=== PATIENT | female | born 1955 | race Two or more races ===

== ENCOUNTER 2019-01-03 14:35 | Inpatient (IN) | payer MEDICAID ==
[~2019-01-03] VITALS: Ht 157.5 cm; Wt 65.5 kg
[2019-01-03 16:09] LABS: Basophils # (auto) 0.1 uL; Basophils % (auto) 1.4 % (0.0-2.0); Eosinophils # (auto) 0.1 uL; Eosinophils % (auto) 2.6 % (0.0-7.0); Hematocrit 44.4 % (36.0-46.0); Hemoglobin 14.9 g/dL (12.2-16.2); Lymphocytes # (auto) 1.4 uL; Lymphocytes % (auto) 32.6 % (10.0-50.0); Mean Corpuscular Hgb Conc. 33.5 g/dL (32.0-36.0); Mean Corpuscular Volume 92.6 fL (80.0-100.0); Monocytes # (auto) 0.5 uL; Monocytes % (auto) 10.5 % (0.0-12.0); Neutrophils # (auto) 2.3 uL; Neutrophils % (auto) 52.9 % (37.0-80.0); Nucleated Red Blood Cells % 0.2 %; Platelet Count (auto) 247 10^3/uL (140-450); Red Blood Cells 4.79 10^6/uL (4.0-5.20); White Blood Cell 4.4 10^3/uL (4.4-10.8)
[2019-01-03 16:24] LABS: Albumin 3.7 g/dL (3.4-5.0); Anion Gap 5 (5-15); Blood Urea Nitrogen 15 mg/dL (7-18); Calcium 8.6 mg/dL (8.5-10.1); Carbon Dioxide 29 mmol/L (21-32); Chloride 112 mmol/L (98-107); Glucose 119 mg/dL (74-106); Magnesium 2.3 mg/dL (1.6-2.6); Potassium 3.5 mmol/L (3.5-5.1); Sodium 146 mmol/L (136-145)
[2019-01-03 16:29] LABS: Alanine Aminotransferase 18 U/L (13-56); Alkaline Phosphatase 89 U/L (45-117); Aspartate Aminotransferase 12 U/L (15-37); BUN/Creatinine Ratio 17.2; Bilirubin, Total 0.7 mg/dL (0.2-1.0); GFR African American 84 mL/min; GFR Non-African American 70 mL/min
[2019-01-03] MEDS ORDERED: ACETAMINOPHEN 500 MG TAB PO PRN (18:15)
[2019-01-03] MEDS ORDERED: MORPHINE SULF INJ 2 MG/ML SYRINGE 1ML IV PRN (18:15)
[2019-01-03] MEDS ORDERED: traMADol HCL 50 MG TAB PO PRN (18:15)
[2019-01-03] MEDS ORDERED: LACTULOSE 20Gm/30ML SOLN PO PRN (18:15)
[2019-01-03] MEDS ORDERED: NITROGLYCERIN 0.4 MG SL TAB SL PRN (18:15)
[2019-01-03] MEDS ORDERED: TEMAZEPAM 15 MG CAP PO PRN (18:15)
[2019-01-03] MEDS ORDERED: ASPirin 81 mg TAB PO ONE (18:15)
[2019-01-03] MEDS ORDERED: PROMETHAZINE HCL 25 MG/ML 1ML IV PRN (18:15)
[2019-01-03] MEDS ORDERED: LABETALOL HCL 5 MG/ML ML 20ML VIAL IV PRN (18:15)
[2019-01-03] MEDS: SODIUM CHLORIDE 0.9% 1,000 ML IV SCH (18:46)
[2019-01-03 18:54] LABS: CRP High Sensitivity 0.2 mg/dL (< 0.3)
[2019-01-03 19:27] LABS: Urine Amorphous Crystal FEW /hpf (None Seen); Urine Bacteria NONE SEEN /hpf (None Seen); Urine Blood Negative /uL (Negative); Urine Specific Gravity 1.019 (1.001-1.035); Urine WBC 5 /hpf (0 - 5)
[2019-01-03] MEDS ORDERED: LORazepam 2MG/ML-1ML VIAL IV PRN (19:30)
--- NOTE | 2019-01-03 19:47 | NUR ---
Telemetry admit from ER MAGNUS MASTERSON admitted to Telemetry unit after hand off tool received. Patient oriented to primary RN, unit, room, bed, and unit policies regarding patient care and visiting hours. Patient now on continuous telemetry monitoring, tele box # 2 and telemetry reading on arrival to unit is Sinus Rhythm 62. Patient weighed by bedscale and encouraged to call if they need something. Patient Romanian speaking only. Family at bedside for interpretation. All questions and concerns addressed, patient verbalized understanding.
[2019-01-03] MEDS ORDERED: SIMV-13 PO (21:29)
[2019-01-03] MEDS ORDERED: ATEN-60 PO (21:29)
[2019-01-03 22:00] VITALS: BP 151/86
[2019-01-03] MEDS: ATORVASTATIN 20 MG TAB PO SCH (22:10)
[2019-01-03 22:33] VITALS: BP 151/86
--- NOTE | 2019-01-03 22:58 | NUR ---
Respiratory note: PT REFUSE CPAP AT THIS TIME, PT STATES SHE DOES NOT HAVE CPAP, PT STATES THE DR ORDERED IT BECAUSE SHE SNORES. SAYS SHE HAS NEVER HAD A SLEEP STUDY AND WILL NOT WEAR THE CPAP.
[2019-01-04 05:00] VITALS: BP 155/93
[2019-01-04 06:26] LABS: Cholesterol 265 mg/dL (< 200); HDL Cholesterol 61 mg/dL (40-59); LDL Cholesterol 187 mg/dL (< 100); Triglycerides 85 mg/dL (< 150)
[2019-01-04] MEDS: SODIUM CHLORIDE 0.9% 1,000 ML IV SCH (06:45)
[2019-01-04 08:00] VITALS: BP 139/85
--- NOTE | 2019-01-04 08:10 | NUR ---
PT RESTING IN BED, NO DISTRESS NOTED. ACUTE DIALYSIS REGISTERED NURSE AT BEDSIDE FOR CAROTID DOPPLER US. PT REPORTS NO PAIN AT THIS TIME, WILL CONTINUE TO MONITOR.
[2019-01-04] MEDS ORDERED: ASPirin 81 mg TAB PO SCH (10:00)
[2019-01-04] MEDS: PANTOPRAZOLE 40 MG TAB PO SCH (10:25)
[2019-01-04] MEDS: ASPirin 81 mg TAB PO SCH (10:25)
[2019-01-04] MEDS: ENOXAPARIN SOD 40 MG/0.4 ML SYRINGE SC SCH (10:26)
[2019-01-04 12:00] VITALS: BP 143/89
--- NOTE | 2019-01-04 12:28 | NUR ---
ECHO DONE, RESULTS PENDING. CARDIO CONSULT CALLED IN AT [address] JEAN.
--- NOTE | 2019-01-04 12:42 | NUR ---
DR JEAN SAW PATIENT, NEW ORDERS FOR STRESS TEST. PATIENT AND FAMILY UPDATED ON POC.
--- NOTE | 2019-01-04 13:04 | NUR ---
Called stress lab to see when they could take patient, no answer. Unable to leave message. Will call back. Patient notified not to eat lunch, pt aware, lunch untouched at bedside.
--- NOTE | 2019-01-04 14:10 | NUR ---
CALLED STRESS LAB AGAIN, UNABLE TO REACH ANYONE OR LEAVE MESSAGE, PHONE JUST KEEPS RINGING.
--- NOTE | 2019-01-04 14:31 | NUR ---
PT WENT DOWN FOR MRI AND HAD FIRST PART OF STRESS TEST, REPORTED BY CRISTOPHER RESEARCH PROGRAM ASSISTANT.
[2019-01-04] MEDS ORDERED: ADENOSINE 51 MG in GIVE UN-DILUTED 0 ML IV STA (14:35)
[2019-01-04] MEDS ORDERED: GADOPENTETATE DIMEGLUMINE (10MMOL/20 ML) VIAL IV ONE (14:50)
[2019-01-04 15:10] VITALS: BP 173/98
--- NOTE | 2019-01-04 15:27 | NUR ---
Discharge planning per SS consult indicating that patient was requesting information about home health. On encounter, patient was lying in bed with her daughter at bedside. I asked of the inquiry and the daughter advised that they were told she (mom/pt.) may benefit from home health. I provided a list of the local home health agencies to the patient. They had no additional questions. I advised if I seen an order, I would reencounter to discuss any preference; they verbalized understanding.
--- NOTE | 2019-01-04 15:52 | NUR ---
Tech reports pt back from stress test.
[2019-01-04] MEDS ORDERED: MIDODRINE HCL 10 MG TAB PO ONE (16:00)
[2019-01-04] MEDS ORDERED: ALBUMIN 25% 100 ML IV ONE ×2 (16:00)
--- NOTE | 2019-01-04 16:00 | NUR ---
CALLED AND PAGED DR KRAMER. PT HAS 4 PLUS LEUKOCYTES IN URINE AND NO ABX.
--- NOTE | 2019-01-04 16:53 | NUR ---
DR KRAMER CALLED BACK, REPORTED 4 PLUS LEUKOCYTES IN URINE. MD AWARE, NO NEW ORDERS AT THIS TIME.
[2019-01-04 17:00] VITALS: BP 175/106
--- NOTE | 2019-01-04 20:00 | NUR ---
Dr. Newby at bedside, educated on the use of CPAP as ordered. Pt and daughter verbalized understanding. No new orders received. Will continue to monitor.
[2019-01-04] MEDS: ATORVASTATIN 20 MG TAB PO SCH (21:17)
[2019-01-04 22:00] VITALS: BP 148/87
--- NOTE | 2019-01-04 22:29 | NUR ---
RT NOTE WENT TO DO THE ROUTINE 2200 CPAP CHECK AND THE PT REQUESTED TO HAVE THE CPAP REMOVED DUE TO BEING UNCOMFORTABLE.
[2019-01-05 05:07] VITALS: BP 141/85
--- NOTE | 2019-01-05 05:50 | NUR ---
Respiratory note: Received pt from steward/stewardess night, RT at bedside for CPAP check. Pt already off CPAP, sleeping comfortably in bed, no s/s of respiratory distress noted at this time.
[2019-01-05 09:00] VITALS: BP 150/89
[2019-01-05] MEDS: ENOXAPARIN SOD 40 MG/0.4 ML SYRINGE SC SCH (09:57)
[2019-01-05] MEDS: PANTOPRAZOLE 40 MG TAB PO SCH (09:57)
[2019-01-05] MEDS: ASPirin 81 mg TAB PO SCH (09:57)
[2019-01-05 13:00] VITALS: BP 149/90
--- NOTE | 2019-01-05 13:15 | NUR ---
Hospitalist at bedside MD Joy at bedside, aware of patient's status. Spoke to patient and pt's daughter at bedside regarding POC. New orders for P.T received. Patient requesting cough medicine at this time. Awaiting echo results and Cardiolite results at this time. Will cont care
[2019-01-05] MEDS ORDERED: PROMETHAZINE HCL 6.25 MG/5 ML ORAL SYRUP PO ONE (14:45)
[2019-01-05 17:00] VITALS: BP 144/94
--- NOTE | 2019-01-05 19:30 | NUR ---
Opening shift note Patient in bed alert and oriented x 4, verbally coherent able to make needs known. Patient's respiration even and unlabored, denies pain and discomfort at this time. Encouraged patient the use of CPAP as ordered. Interpretation from Botswanan to Danish provided by family. Plan of care discussed. Pt and family verbalized understanding. Will continue to monitor.
--- NOTE | 2019-01-05 19:55 | NUR ---
NOTIFIED BY RN ABOUT FAMILY COMPLAINT REGARDING CPAP. SPOKE WITH FAMILY ABOUT SITUATION AND DUE TO LANGUAGE BARRIER, THERAPIST REMOVED PT AND KEPT OFF BUT PT WANTED TO KEEP ON AFTER USING BATHROOM. RT REGINALD ABLE TO TRANSLATE AND WILL BE ON STAND BY TO COMMUNICATE WITH PT WHEN READY TO GO ON CPAP.
[2019-01-05 22:00] VITALS: BP 150/89
[2019-01-05] MEDS: ATORVASTATIN 20 MG TAB PO SCH (22:25)
--- NOTE | 2019-01-05 22:27 | NUR ---
Respiratory note: Olvin BARROSO ASSISTED WITH TRANSLATION AND HELPED PLACE PT ON CPAP FOR NOC USE. PT TOLERATING CPAP WELL WITH FULL FACE MASK MEDIUM SIZE. NO SKIN BREAKDOWN NOTED. PT ALERT AND ORIENTED. PLACED PT ON BEDSIDE PULSE OX. SPO2 ON CPAP 96%, HR 71, RR 16. BS CLR/DIM T/O. WILL CONTINUE TO MONITOR PT T/O SHIFT MADE PT AWARE TO CALL FOR ANY ASSISTANCE IN DEVICE OR NEEDING TO USE RESTROOM.
--- NOTE | 2019-01-05 22:35 | NUR ---
RT at bedside CPAP initiated. Patient compliant. Will continue to monitor.
--- NOTE | 2019-01-06 00:40 | NUR ---
received report from cristal Rivers, to continue pt. care.
[2019-01-06 05:00] VITALS: BP 145/99
--- NOTE | 2019-01-06 05:57 | NUR ---
Respiratory note: TOOK PT OFF CPAP, PT AWAKE AND ALERT AND READY TO COME OFF CPAP. HR 67, SPO2 98% RA BSC, RR 16. NO RESP DISTRESS NOTED.
[2019-01-06 09:00] VITALS: BP 139/86
[2019-01-06] MEDS: ASPirin 81 mg TAB PO SCH (09:42)
[2019-01-06] MEDS: PANTOPRAZOLE 40 MG TAB PO SCH (09:42)
[2019-01-06] MEDS: ENOXAPARIN SOD 40 MG/0.4 ML SYRINGE SC SCH (09:43)
[2019-01-06] MEDS ORDERED: ATOR20TA50 PO (11:26)
[2019-01-06] MEDS ORDERED: AML5T PO (11:26)
[2019-01-06] MEDS ORDERED: ASPI81CH43 PO (11:26)
--- NOTE | 2019-01-06 11:30 | NUR ---
Regarding echo results Per MD Melgoza "EF is 60% Trace MR, TR LAE" MD Joy aware and states patient can be discharged. Will dc as ordered
[2019-01-06 11:37] VITALS: BP 157/92
[2019-01-06 13:00] VITALS: BP 157/82
[2019-01-06 14:45] VITALS: BP 146/84
--- NOTE | 2019-01-06 15:25 | NUR ---
Discharge instructions given as ordered to patient and after patient's consent, daughter at bedside. Encourage to follow up with PMD as instructed. All questions and concerns addressed. Patient verbalized understanding. Medication reconciliation form completed and copy given to patient. IV removed with catheter intact, pressure dressing applied. Telemetry unit returned to ICU. Patient refused wheelchair and ambulated in no acute distress with all personal belongings, accompanied by family member. No distress noted at time of departure.
== END 2019-01-06 15:25 | disposition home or self-care (01) | DRG 45 ==
LOC: ER 14:39 → TELE 14:40 → TELE-EAST 19:47
PROVIDERS: ADMIT Internal Medicine; ATTEND Internal Medicine Nephrology
DX: I63.81 Other cerebral infarction due to occlusion or stenosis of small artery (principal); G81.91 Hemiplegia, unspecified affecting right dominant side; G47.10 Hypersomnia, unspecified; E78.5 Hyperlipidemia, unspecified; I10 Essential (primary) hypertension; Z79.82 Long term (current) use of aspirin; Z79.899 Other long term (current) drug therapy; Z82.49 Family history of ischemic heart disease and other diseases of the circulatory system; Z83.3 Family history of diabetes mellitus
CPT/HCPCS: 36415; 70450; 70553; 71045; 78452; 80053; 80061; 81001; 82550; 83735; 84484; 85025; 85652; 86141; 93005; 93017; 93306; 93886; 94660; 94761; 96360; G0378; J0153

== ENCOUNTER 2022-07-26 15:08 | Inpatient (IN) | payer MEDICAID ==
[~2022-07-26] VITALS: Ht 157.5 cm; Wt 81.5 kg
[~2022-07-26 15:08] MED LIST: ASPI81CH43 PO; ATEN-60 PO; ATOR20TA50 PO
[2022-07-26 15:58] LABS: Basophils # (auto) 0.1 10 ^3/uL (0-0.2); Basophils % (auto) 1.1 % (0.0-2.0); Eosinophils # (auto) 0.2 10 ^3/uL (0-0.8); Eosinophils % (auto) 3.5 % (0.0-7.0); Hemoglobin 14.6 g/dL (12.2-16.2); Lymphocytes # (auto) 2.2 10 ^3/uL (0.4-5.4); Lymphocytes % (auto) 38.2 % (10.0-50.0); Mean Corpuscular Hemoglobin 31.1 pg (28.0-32.0); Mean Corpuscular Hgb Conc. 33.1 g/dL (32.0-36.0); Mean Corpuscular Volume 93.8 fL (80.0-100.0); Monocytes # (auto) 0.5 10 ^3/uL (0-1.3); Monocytes % (auto) 8.7 % (0.0-12.0); Neutrophils # (auto) 2.7 10 ^3/uL (1.6-8.6); Neutrophils % (auto) 48.5 % (37.0-80.0); Nucleated Red Blood Cells % 0.2 %; Red Blood Cells 4.69 10^6/uL (4.0-5.20); Red Cell Distribution Width 14.1 % (11.8-14.3); White Blood Cell 5.6 10^3/uL (4.4-10.8)
[2022-07-26 16:21] LABS: Urine Bacteria NONE SEEN /hpf (None Seen); Urine Blood Negative /uL (Negative); Urine Specific Gravity 1.022 (1.001-1.035); Urine WBC 1 /hpf (0 - 5)
[2022-07-26 16:52] LABS: Albumin 3.5 g/dL (3.4-5.0); Calcium 8.8 mg/dL (8.5-10.1); Potassium 3.6 mmol/L (3.5-5.1)
[2022-07-26 16:56] LABS: BUN/Creatinine Ratio 24.1 (10.0-20.0); Bilirubin, Total 0.7 mg/dL (0.2-1.0); Total Protein 6.7 g/dL (6.4-8.2)
[2022-07-26] MEDS ORDERED: MECLIZINE HCL 25 MG TAB PO PRN (21:00)
[2022-07-26] MEDS ORDERED: TEMAZEPAM 15 MG CAP PO PRN (21:00)
[2022-07-26] MEDS ORDERED: ONDANSETRON HCL 4 MG/2 ML VIAL IV PRN (21:00)
[2022-07-26] MEDS ORDERED: ACETAMINOPHEN 325 MG TAB PO PRN (21:00)
[2022-07-26] MEDS: ATORVASTATIN 20 MG TAB PO SCH (23:11)
[2022-07-27 07:04] LABS: BUN/Creatinine Ratio 21.8 (10.0-20.0); Calcium 9.3 mg/dL (8.5-10.1); Potassium 3.4 mmol/L (3.5-5.1)
[2022-07-27] MEDS: GABAPENTIN 300 MG CAP PO SCH (10:36)
[2022-07-27] MEDS: HCTZ 25 MG TAB PO SCH (10:37)
[2022-07-27] MEDS: ASPirin 81 mg TAB PO SCH (10:37)
[2022-07-27] MEDS: PANTOPRAZOLE 40 MG TAB PO SCH (10:38)
[2022-07-27] MEDS: ATENOLOL 50 MG TAB PO SCH (10:38)
[2022-07-27] MEDS: ENOXAPARIN SOD 40 MG/0.4 ML SYRINGE SC SCH (10:39)
[2022-07-27 16:12] VITALS: BP 125/69
[2022-07-27] MEDS ORDERED: HYDR12.56 PO (16:30)
[2022-07-27] MEDS ORDERED: GABA300C10 PO (16:30)
[2022-07-27 17:00] VITALS: BP 125/69
[2022-07-27] MEDS: ATORVASTATIN 20 MG TAB PO SCH (21:59)
[2022-07-27 22:00] VITALS: BP 127/73
[2022-07-28 05:00] VITALS: BP 106/66
[2022-07-28 08:30] VITALS: BP 98/64
[2022-07-28] MEDS: ENOXAPARIN SOD 40 MG/0.4 ML SYRINGE SC SCH (10:28)
[2022-07-28] MEDS: ASPirin 81 mg TAB PO SCH (10:29)
[2022-07-28] MEDS: HCTZ 25 MG TAB PO SCH (10:29)
[2022-07-28] MEDS: GABAPENTIN 300 MG CAP PO SCH (10:29)
[2022-07-28] MEDS: ATENOLOL 50 MG TAB PO SCH (10:29)
[2022-07-28] MEDS: PANTOPRAZOLE 40 MG TAB PO SCH (10:30)
[2022-07-28 12:35] VITALS: BP 125/75
[2022-07-28 13:27] VITALS: BP 125/75
== END 2022-07-28 14:45 | disposition home or self-care (01) | DRG 47 ==
LOC: ER 15:08 → OVERFLOW 21:07 → CENTRAL 07-27 17:19
PROVIDERS: ADMIT Nurse Practitioner; ATTEND Internal Medicine
DX: G45.9 Transient cerebral ischemic attack, unspecified (principal); E78.5 Hyperlipidemia, unspecified; I10 Essential (primary) hypertension; Z83.3 Family history of diabetes mellitus
CPT/HCPCS: 36415; 70450; 70551; 72125; 80048; 80053; 81001; 82962; 84484; 85025; 93005; 97163; G0378

== ENCOUNTER 2024-09-10 13:17 | Emergency (ER) | payer MEDICAID ==
[~2024-09-10] VITALS: Ht 157.5 cm; Wt 79.0 kg
[~2024-09-10 13:17] MED LIST changes: +GABA-1250 PO; +HYDR12.59 PO
[2024-09-10] MEDS: SODIUM CHLORIDE 0.9% 1,000 ML IV ONE (13:45)
[2024-09-10 14:02] VITALS: BP 141/85; TEMP 98.4
[2024-09-10 14:20] VITALS: PULSE 63; RESP 17; O2SAT 96
[2024-09-10] MEDS: MECLIZINE HCL 25 MG TAB PO ONE (14:30)
[2024-09-10] MEDS: ONDANSETRON HCL 4 MG/2 ML VIAL IV ONE (14:30)
[2024-09-10 14:35] LABS: Basophils # (auto) 0 10 ^3/uL (0-0.2); Basophils % (auto) 0.8 % (0.0-2.0); Eosinophils # (auto) 0.2 10 ^3/uL (0-0.8); Eosinophils % (auto) 3.8 % (0.0-7.0); Hematocrit 44.4 % (36.0-46.0); Hemoglobin 15.1 g/dL (12.2-16.2); Lymphocytes # (auto) 1.8 10 ^3/uL (0.4-5.4); Lymphocytes % (auto) 34.9 % (10.0-50.0); Mean Corpuscular Hemoglobin 31.2 pg (28.0-32.0); Mean Corpuscular Volume 91.9 fL (80.0-100.0); Monocytes # (auto) 0.5 10 ^3/uL (0-1.3); Monocytes % (auto) 9.3 % (0.0-12.0); Neutrophils # (auto) 2.7 10 ^3/uL (1.6-8.6); Neutrophils % (auto) 51.2 % (37.0-80.0); Nucleated Red Blood Cells % 0.1 %; Platelet Count (auto) 210 10^3/uL (140-450); Red Blood Cells 4.83 10^6/uL (4.0-5.20); Red Cell Distribution Width 15.5 % (11.8-14.3); White Blood Cell 5.3 10^3/uL (4.4-10.8)
[2024-09-10 14:37] VITALS: PULSE 60
--- NOTE | 2024-09-10 14:38 | ED.PDOC ---
HPI (NEURO) HPI Comments HPI: 68y F who presents to the ED for chief complaint of dizziness. - pt states she had dizziness episode yesterday - pt states earlier this AM, when attempting to get up from bed, she started to have dizziness and states she almost fell over and had syncopal but states she was able to catch herself from any associated syncope - pt states she dizziness persisted so she came to the ED - pt in he ED, states she feels lightheaded with associated nausea - pt states she gets increased dizziness when sitting down and decreased dizziness when standing or ambulating -pt otherwise denies any other symptoms in the ED, and is ax0x4 - Past Medical history: HLD, HTN, 2x CVA Past Surgical history: hysterectomy, bilateral wrist Medications: denies Allergies: denies Social History: denies ETOH, denies tobacco use, denies drug use HPI: Poor Historian. [place]: N, vertigo since yesterday. recent ear infection. Movement of the eyes elicits nausea and dizziness. REVIEW OF SYSTEMS: CONSTITUTIONAL: Denies acute: fever, diaphoresis, chills, generalized weakness. HEAD: Denies acute: headache, photophobia Eyes: Denies acute: Double vision, vision loss, eye pain, eye discharge. EARS: Denies acute: tinnitus, hearing loss, ear discharge, ear pain, THROAT: Denies acute: sore throat, swelling, difficulty swallowing , pain with swallowing, change in voice. NECK: Denies acute: neck pain, neck swelling, stiff neck. HEART: Denies acute : chest pain, palpitations, LUNGS: Denies acute: SOB, wheezing, cough, hemoptysis ABDOMEN: Denies acute: abdominal pain, Nausea, Vomiting, diarrhea, melena , hematemesis, hematochezia SKIN: Denies acute: rash, redness, lesions, itchiness. EXTREMITIES: Denies acute: calf pain, numbness, tingling, weakness, denies pain in extremity. Denies acute: Low back pain. Neuro: Denies acute: focal neurological deficit, motor or sensory focal neurological deficit, tremors, seizure like activity, confusion, change in mental status, loss of bowel or bladder function, cauda equina like symptoms. : Denies acute: dysuria, hematuria, flank pain, increase in urinary frequency. PSYCH: Denies acute: hallucination, suicidal ideation, homicidal ideation. FEMALE: Denies acute: abnormal vaginal bleeding, foul odor, unusual discharge. PHYSICAL EXAM: General: ---mild-----acute distress, awake and alert. Head: normocephalic, atraumatic. When asked the patient to our to their head left and right she feels dizziness. When I asked her to follow up by finger to monitor her extraocular muscles and gaze, that also elicits her sensation of vertigo and nausea. Neck: supple, trachea is midline, no swelling. Throat: Normal phonation. Eyes:, no erythema, no purulent discharge, no proptosis, no icterus. Heart: regular rate, regular rhythm, no significant murmur appreciated. Lungs: no apparent respiratory distress, Able to speak in full sentences. No wheezing, no rhonchi, no crackles. No stridors Clear to auscultation bilaterally. Abdomen: non tender to palpation, non distended, soft, no guarding, no rebound, + bowel sounds. Neuro: Awake, Alert, oriented to name, self, situation, follows commands GCS=15. Speech is normal. Skin: no petechia, no purpura, no cyanosis, non-pale, not jaundice. Lower extremities: --no - Pitting edema no deformity, no focal swelling, no calf TTP. Makes eye contact. moves all four extremities. Face: no apparent facial droop. Ambulating in the ED independently. PERRLA, EOM-I CN 2-12 are grossly intact, No nystagmus. No nuchal rigidity, Kernig's sign, Brudzinski's sign, no meningeal signs. ED COURSE: Chief Complaint: Dizziness Time Seen by MD: 14:37 Primary Care Provider: RISHABH Reviewed Notes: Medications, Allergies Information Source: Patient Mode of Arrival: Ambulatory Past Medical History PAST MEDICAL HISTORY: High Lipids, HTN Surgical History: Tonsillectomy ENGINEERING DOCUMENTATION SPECIALIST History: No Pertinent ENGINEERING DOCUMENTATION SPECIALIST History Family History Family History: Family hx of DM, Family hx of heart abdon Social History Smoker: Non-Smoker Alcohol: Denies ETOH Use Drugs: Denies Drug Use Lives In: Home EKG EKG : Pulse Rate (adult): 60 [place]: Normal Cardiac Rhythm: NSR Block: None Hypertrophy: None ST: Normal Was a procedure done? Was a procedure done?: No Differential Diagnosis (SZ) General Weakness: Anemia, CVA, Dehydration, Dysrhythmia, Electrolyte imbalance, Encephalopathy, Guillain-[place], Hypoglycemia, Hypotension, Hypovolemia, Labyrinthitis, Meniere's disease, Myasthenia gravis, Myocardial infarction, Pulmonary embolus, Renal failure, Repiratory failure, TIA, VBI, Vertigo: central, Vertigo: peripheral, Vestibular neuronitis X-Ray, Labs, Meds, VS Vital Signs Date Time Temp Pulse Resp B/P (MAP) Pulse Ox O2 Delivery O2 Flow Rate FiO2 09/10/24 14:37 60 09/10/24 14:20 63 17 96 Room Air* 0 21 09/10/24 14:07 60 09/10/24 14:02 98.4 63 17 141/85 (103) 96 98.4 09/10/24 14:02 98.4 63 17 141/85 (103) 96 98.4 Lab Test 09/10/24 15:09 09/10/24 14:58 09/10/24 14:15 09/10/24 13:33 Range/Units Troponin I High Sensitivity < 3 L < 3 L </=34 ng/L Urine Color Light-yellow Yellow Urine Clarity Clear Clear Urine pH 6.0 5.0-9.0 Urine Specific [place] 1.017 1.001-1.035 Urine Protein Negative Negative Urine Ketones Negative Negative Urine Blood Negative Negative /uL Urine Nitrite Negative Negative Urine Bilirubin Negative Negative Urine Urobilinogen Normal Negative mg/dL Urine Leukocyte Esterase Negative Negative /uL Urine RBC <1 0 - 4 /hpf Urine Microscopic WBC 1 0-5 /HPF Urine Squamous Epithelial Cells Few <5 /hpf Urine Bacteria None seen None Seen /hpf Urine Glucose Normal Normal mg/dL White Blood Count 5.3 4.4-10.8 10^3/uL Red Blood Count 4.83 4.0-5.20 10^6/uL Hemoglobin 15.1 12.2-16.2 g/dL Hematocrit 44.4 36.0-46.0 % Mean Corpuscular Volume 91.9 80.0-100.0 fL Mean Corpuscular Hemoglobin 31.2 28.0-32.0 pg Mean Corpuscular Hemoglobin Concent 34.0 32.0-36.0 g/dL Red Cell Distribution Width 15.5 H 11.8-14.3 % Platelet Count 210 140-450 10^3/uL Mean Platelet Volume 8.5 6.9-10.8 fL Neutrophils (%) (Auto) 51.2 37.0-80.0 % Lymphocytes (%) (Auto) 34.9 10.0-50.0 % Monocytes (%) (Auto) 9.3 0.0-12.0 % Eosinophils (%) (Auto) 3.8 0.0-7.0 % Basophils (%) (Auto) 0.8 0.0-2.0 % Neutrophils # (Auto) 2.7 1.6-8.6 10 ^3/uL Lymphocytes # (Auto) 1.8 0.4-5.4 10 ^3/uL Monocytes # (Auto) 0.5 0-1.3 10 ^3/uL Eosinophils # (Auto) 0.2 0-0.8 10 ^3/uL Basophils # (Auto) 0 0-0.2 10 ^3/uL Nucleated Red Blood Cells 0.1 % Sodium Level 145 136-145 mmol/L Potassium Level 3.9 3.5-5.1 mmol/L Chloride Level 109 H 98-107 mmol/L Carbon Dioxide Level 29 20-31 mmol/L Anion Gap 7 5-15 Blood Urea Nitrogen 13 9-23 mg/dL Creatinine 0.85 0.550-1.02 mg/dL Glomerular Filtration Rate Calc 74 >90 mL/min BUN/Creatinine Ratio 15.3 10.0-20.0 Serum Glucose 94 74-106 mg/dL Lactic Acid Level 0.9 0.4-2.0 mmol/L Calcium Level 10.0 8.7-10.4 mg/dL Magnesium Level 2.2 1.6-2.6 mg/dL Total Bilirubin 0.9 0.2-1.0 mg/dL Aspartate Amino Transferase (AST) 25 13-40 U/L Alanine Aminotransferase (ALT) 33 7-40 U/L Alkaline Phosphatase 90 46-116 U/L Total Protein 7.2 5.7-8.2 g/dL Albumin 4.4 3.2-4.8 g/dL POC Glucose 86 70-106 mg/dl Time of 1ST Reevaluation: 16:22 Reevaluation 1ST: Resolved Patient Education/Counseling: Diagnosis, Treatment Family Education/Counseling: No Family Present Comments Patient presented with the above HPI.--dizziness----workup was initiated. patient was found with the above mentioned diagnosis. the following medications were ordered: please refer to order lists of meds and tests obtained by myself Dr. Devine. Patient ED course and VS have been stabilized. Patient has been reassessed in the ED and remained in a stable condition. Pertinent incidental findings were discussed with the patient and/or family. Patient/family voices understanding and is agreeable with plan. Patient has been observed in the ED adequate length of time to insure improvement/stability. Escalation of care considered: Consideration of escalation to observation or admission Patient's symptoms resolved after minimal intervention in the ED. patient is neurologically intact. Patient was DISCHARGED home in a stable condition. All the reports of any imaging studies that were ordered by myself were reviewed by myself. Departure 1 Departure Time of Disposition: 16:21 Impression: Primary Impression: Vertigo Disposition: 01 HOME / SELF CARE / HOMELESS Condition: Stable Additional Instructions: Additional instructions: You MUST follow-up with your primary care/family doctor in 1 to 2 days. If you are unable to see your primary care/family doctor, please return to our emergency room for re-assessment and re-evaluation in 1 to 2 days. Return to the emergency room here in our facility or to the nearest ER [facility] if your symptoms change or worsen. CONSULTATIONS: you MUST Follow-up for consultation as soon as possible with: neurology and ENT doctor in 1-2 days. Please call for appointment. You MUST call the consultants office yourself to make an appointment. You may need to arrange that through your insurance and/or your primary/family doctor. If you are unable to see the strategic sourcing consultant in 1 to 2 days, you must return to our emergency room (or any other ER of your choice) for re-assessment and re- evaluation. Adequate fluid hydration. e-Prescriptions Meclizine HCl (Meclizine 25) 25 Mg Tab 25 MG PO [id number] PRN for 3 Days, #6 TAB Prov: MARY DEVINE DO 09/10/24 Discharged With: Self Critical Care Note Critical Care Time?: No I personally scribed for MARY DEVINE DO ([email or web address]) on 09/10/24 at 14:37. Electronically submitted by Jennifer Cavanaugh (NAM). MARY DEVINE DO Sep 10, 2024 14:37
[2024-09-10 14:51] LABS: Alanine Aminotransferase 33 U/L (7-40); Albumin 4.4 g/dL (3.2-4.8); Alkaline Phosphatase 90 U/L (46-116); Anion Gap 7 (5-15); Aspartate Aminotransferase 25 U/L (13-40); BUN/Creatinine Ratio 15.3 (10.0-20.0); Bilirubin, Total 0.9 mg/dL (0.2-1.0); Blood Urea Nitrogen 13 mg/dL (9-23); Carbon Dioxide 29 mmol/L (20-31); Chloride 109 mmol/L (98-107); Glucose 94 mg/dL (74-106); Magnesium 2.2 mg/dL (1.6-2.6); Potassium 3.9 mmol/L (3.5-5.1); Sodium 145 mmol/L (136-145); Total Protein 7.2 g/dL (5.7-8.2)
[2024-09-10 15:00] LABS: Urine Bacteria None Seen /hpf (None Seen)
[2024-09-10 15:19] LABS: Urine Blood Negative /uL (Negative); Urine Clarity Clear (Clear); Urine Color Light-Yellow (Yellow); Urine Protein, UAD Negative (Negative); Urine Specific Gravity 1.017 (1.001-1.035); Urine Squamous Epithelial Cell FEW /hpf (<5); Urine Urobilinogen Normal (Negative); Urine WBC 1 /HPF (0-5)
[2024-09-10] MEDS ORDERED: MECL1TAB42 PO (16:22)
--- NOTE | 2024-09-10 18:29 | ECG ---
[facility] Test Date: 2024-09-10 Test Time: 13:39:41 Pat Name: MAGNUS MASTERSON Department: TRIAGE Room: Gender: F Computer Service Technician: TIFFANIE : 1955 Requested By: MARY HAYS Order Number: [id number] Reading MD: Irineo Grijalva Measurements Intervals [place] Rate: 60 P: 43 TN: 192 QRS: 0 QRSD: 89 T: 21 QT: 431 QTc: 431 Interpretive Statements Sinus rhythm Electronically Signed On 09-11-2024 21:10:28 PDT by Irineo Grijalva Please click the below link to view image of tracing.
== END 2024-09-10 16:39 | disposition home or self-care (01) ==
LOC: ER 13:22
DX: R42 Dizziness and giddiness (principal); E78.5 Hyperlipidemia, unspecified; I10 Essential (primary) hypertension; Z86.73 Personal history of transient ischemic attack (TIA), and cerebral infarction without residual deficits; Z90.710 Acquired absence of both cervix and uterus
CPT/HCPCS: 36415; 80053; 81001; 82947; 83605; 83735; 84484; 85025; 93005; 96361; 96374; 99284; J2405; J7030; J8597; 82962